=== PATIENT | male | born 1960 | race Caucasian/White ===

== ENCOUNTER 2020-01-20 08:54 | Emergency (ER) | payer OTHER ==
[~2020-01-20] VITALS: Ht 162.6 cm; Wt 117.0 kg
[~2020-01-20 08:54] MED LIST: CIPRO PO; FLAG500T OR; PERC5TAB8 OR; PERC7.5T8 OR
[2020-01-20] MEDS ORDERED: ACET-683 PO (09:34)
[2020-01-20 09:43] VITALS: BP 156/86
--- NOTE | 2020-01-20 10:00 | REP ---
Clinical: Pain and swelling. Technique: AP, lateral, bilateral oblique and sunrise views of the left knee. Findings: Generalized age-related changes are appreciated. No obvious acute fracture or dislocation. No definite effusion. Impression: Age-related degenerative changes. Electronically Signed by Tejas Paredes MD 01/20/2020 09:52 A
== END 2020-01-20 09:58 | disposition home or self-care (01) ==
LOC: M ED 08:54
DX: M25.562 Pain in left knee (principal)